=== PATIENT | male | born 1970 | race Caucasian/White ===

== ENCOUNTER 2017-03-01 16:18 | Emergency (ER) | payer BC ==
[2017-03-01] MEDS ORDERED: Tetan/Diph/Pertus SYR(Tdap)* 0.5 ML SYR(BOOSTRIX) use SYR IM ONE (16:43)
--- NOTE | 2017-03-01 17:31 | RAD ---
Indication: Indication: Left shoulder injury. 4 views of left shoulder demonstrates a fracture of the distal clavicle with mildly comminution and apical angulation superiorly. IMPRESSION: Fracture distal clavicle with angulation of the apex superiorly.
--- NOTE | 2017-03-01 17:34 | RAD ---
Indication: Left shoulder injury. 2 views of the chest including dual energy PA views demonstrate no mediastinal shift. Heart is of normal size and configuration. Lung mcdaniels are clear. Old rib fractures of the right sixth rib posteriorly is noted. IMPRESSION: No pneumothorax is noted. Old fracture right sixth rib.
--- NOTE | 2017-03-01 17:34 | RAD ---
Indication: Left clavicle fracture. 2 views of left clavicle demonstrates fracture of the distal left clavicle. Apical angulation is noted superiorly. IMPRESSION: Fracture distal clavicle.
[2017-03-01] MEDS ORDERED: oxyCODONE/Acetamin 5/325 MG* TAB PO ONE (18:06)
[2017-03-01 18:51] VITALS: BP 107/52
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
== END 2017-03-01 18:49 | disposition home or self-care (01) ==
LOC: ED 16:18
DX: S42.032A Displaced fracture of lateral end of left clavicle, initial encounter for closed fracture (principal); S43.102A Unspecified dislocation of left acromioclavicular joint, initial encounter; V19.9XXA Pedal cyclist (driver) (passenger) injured in unspecified traffic accident, initial encounter; Y93.55 Activity, bike riding; Y92.9 Unspecified place or not applicable
CPT/HCPCS: 71020; 90471; 90715; 99282; A9270-GY